=== PATIENT | male | born 1995 | race Caucasian/White ===

== ENCOUNTER 2017-11-19 07:45 | Emergency (ER) | payer BC ==
[~2017-11-19] VITALS: Ht 165.1 cm; Wt 68.0 kg
[2017-11-19] MEDS ORDERED: CIPHYDOTSU (08:04)
== END 2017-11-19 08:28 | disposition home or self-care (01) ==
LOC: ER 07:45
DX: H57.11 Ocular pain, right eye (principal); Z87.891 Personal history of nicotine dependence